=== PATIENT | female | born 1985 | race Caucasian/White ===

== ENCOUNTER → 2016-08-29 09:43 | Emergency (ER) | payer SELFPAY ==
--- NOTE | 2016-08-29 10:14 | ED ---
GI/ HPI - HPI Summary HPI Summary: 31 female presents with complaints of lower pelvic pain/cramps and vaginal bleeding x 3 weeks intermittently, began August 14 and she believes it was the start of her menstrual cycle. Patient states she has never experienced this before. She had an IUD for 10 years that was removed last January. Since then her menstrual cycles have been irregular however she has never experienced bleeding for this period of time. LMP was July 13. States bleeding was very light and would stop for 1-2 days however came back and has been getting heavier. Denies any other discharge other than blood. She states her pain was 8/ 10 this morning and she took an excedrin which relieved her pain. States she is going through 2 super tampons in 5 hours. Experiencing clots, which is concerning her. Denies any reproductive history. Has PMHx significant for MS. She denies urinary symptoms, concern for STDs and is having normal bowel movements. Pain is in lower abdomen/suprapubic and does not radiate. Denies chest pain, dizziness, lightheadedness, fever/chills, nausea and vomiting. Her and her partner have been trying to become for the past 6 months. She has not taken an at home test. Has been twice. Has one child in 2007. Last was 4 years ago and she had an . Has not called to make an appointment with her OBGYN yet. - History of Current Complaint Chief Complaint: EDVaginalBleeding Time Seen by Provider: 08/29/16 10:05 Stated Complaint: PELVIC PAIN Hx Obtained From: Patient Onset/Duration: Started Weeks Ago, Still Present, Worse Since Timing: Constant, Intermittent Severity: Severe Current Severity: Mild Vaginal Bleeding Description: Bright Red, Brownish-Red Number of Pads per Hour: 1 - super tampon per hour Pain Intensity: 4 Location of Pain: Suprapubic Pain Characteristics: Cramping Associated Signs and Symptoms: Positive: Diarrhea. Negative: Back Pain, Dizziness, Nausea, Vomiting, Constipation, Blood w/Stool, Hematuria, Dysuria, Flank Pain, Chills, Chest Pain, UTI Symptoms Additional Signs & Symptoms: Positive: - 4 years ago, - 2, Para - 1, Menses Irregular. Negative: STD Aggravating Factor(s): Movement Alleviating Factor(s): OTC Analgesics - Allergy/Home Medications Allergies/Adverse Reactions: Allergies Allergy/AdvReac Type Severity Reaction Status Date / Time No Known Allergies Allergy Verified 02/21/12 12:55 PMH/Surg Hx/FS Hx/Imm Hx Endocrine/Hematology History: Denies: Hx Diabetes, Hx Thyroid Disease Cardiovascular History: Denies: Hx Hypertension Respiratory History: Denies: Hx Asthma, Hx Chronic Obstructive Pulmonary Disease (COPD) GI History: Denies: Hx Ulcer Neurological History: Reports: Other Neuro Impairments/Disorders - multiple sclerosis - Surgical History Surgery Procedure, Year, and Place: C section 2007 - Immunization History Immunizations Up to Date: Yes Infectious Disease History: Denies: Hx Hepatitis, Hx Human Immunodeficiency Virus (HIV), Traveled Outside the [place] in Last 30 Days - Social History Alcohol Use: None Substance Use Type: Reports: None Smoking Status (MU): Current Every Day Smoker - 1/2 ppd Type: Cigarettes Review of Systems Constitutional: Negative Cardiovascular: Negative Respiratory: Negative Positive: Abdominal Pain - pelvic pain Positive: pain, other - vaginal bleeding All Other Systems Reviewed And Are Negative: Yes Physical Exam Triage Information Reviewed: Yes Vital Signs On Initial Exam: Initial Vitals Temp Pulse Resp BP Pulse Ox 98.3 F 68 17 118/75 100 08/29/16 09:52 08/29/16 09:52 08/29/16 09:52 08/29/16 09:52 08/29/16 09:52 Vital Signs Reviewed: Yes Appearance: Positive: Well-Appearing, No Pain Distress, Well-Nourished Skin: Positive: Warm, Skin Color Reflects Adequate Perfusion, Dry. Negative: Cold, Numb, Cyanosis @, Erythema @ Head/Face: Positive: Normal Head/Face Inspection Eyes: Positive: Normal, Conjunctiva Clear ENT: Positive: Hearing grossly normal Neck: Positive: Supple, Nontender, No Lymphadenopathy Respiratory/Lung Sounds: Positive: Clear to Auscultation, Breath Sounds Present. Negative: Rales, Rhonchi, Stridor, Wheezes Cardiovascular: Positive: Normal, RRR, Pulses are Symmetrical in both Upper and Lower Extremities. Negative: Murmur, Rub Abdomen Description: Positive: No Organomegaly, Soft, Guarding - lower abdomen/ suprapubic, Other: - mildly tender/discomfort on palpation of lower abdomen suprapubic area. Negative: CVA Tenderness (R), CVA Tenderness (L), Distended, Peritoneal Signs, Pulsatile Mass Bowel Sounds: Positive: Present Pelvic Exam: Positive: external exam normal, speculum exam normal - besides blood and cervical os appears open, bimanual exam normal, no cerv. motion tender , no masses, active bleeding, tender adnexa, tender uterus, other - no lesions or masses, other lucio normal exam. Negative: discharge, tender w/ cervical motion Musculoskeletal: Positive: Normal, Strength/ROM Intact Neurological: Positive: Normal, Sensory/Motor Intact, Alert, Oriented to Person Place, Time Psychiatric: Positive: Normal, Affect/Mood Appropriate Diagnostics - Vital Signs Vital Signs Temp Pulse Resp BP Pulse Ox 08/29/16 09:52 98.3 F 68 17 118/75 100 - Laboratory Result Diagrams: 08/29/16 10:40 08/29/16 10:40 Lab Statement: Any lab studies that have been ordered have been reviewed, and results considered in the medical decision making process. - Ultrasound No standard instances Ultrasound Interpretation: Positive (See Comments) - 1. Unremarkable uterus and endometrium. 2. Small bilateral involuting follicular or hemorrhagic ovarian cysts without concern. Ultrasound Interpretation Completed By: Radiologist Re-Evaluation - Re-Evaluation First Eval Re-Evaluation Time: 11:54 Change: Unchanged Comment: patient was updated on her lab and u/s results. 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 CBC, CMP, HCG preg and urinalysis obtained. Transvaginal U/S obtained. Also obtained GC/Chlam and affirm cultures. pending results. Beta quant was positive however u/s was negative beside b/l follicullar/hemorrhagic cysts without concern. Due to patient's HPI, PE findings and lab results will be treated as an early miscarriage. no concern for ectopic at this time. Follow up with OBGYN within the next 3 days for repeat lab work and evaluation. Continue NSAIDs for pain and inflammation. Aware of worsening sign and symptoms to watch out for. - Diagnoses Differential Diagnoses - Female: Candidiasis, Cystitis, Ectopic , Ovarian Torsion, , Pelvic Inflammatory Disease, STD, Threatened , Urinary Tract Infection, Vaginitis, Other - miscarriage Provider Diagnoses: Miscarriage - Physician Notifications Discussed Care Of Patient With: Dr Lozada Discharge - Discharge Plan Condition: Stable Disposition: HOME Patient Education Materials: Miscarriage (ED) Referrals: Marcella Baltazar MD [Primary Care Provider] - James Claudio MD [Medical Doctor] - Additional Instructions: Continue taking NSAIDs such as iburprofen or aleve to help with pain and decreasing inflammation. Use warm heating pads to help soothe lower abdominal cramps/pain. Follow up and have repeat blood work at OBGYN within the next 3 days, as this is very important. If you develop worsening symptoms, symptoms persist or new symptoms develop please return and seek medical attention promptly.
[2016-08-29 11:00] LABS: Hematocrit 40 % (35-47); Mean Corpuscular HGB Conc 33 g/dl (31-36); Mean Corpuscular Hemoglobin 31 pg (27-31); Mean Corpuscular Volume 95 fL (80-97); Mean Platelet Volume 9 um3 (7.4-10.4); Red Blood Count 4.17 10^6/ul (4.0-5.4); Red Cell Distribution Width 14 % (10.5-15); White Blood Count 7.4 10^3/ul (3.5-10.8)
[2016-08-29 11:24] LABS: Urine Bacteria Absent (Absent); Urine Bilirubin Negative (Negative); Urine Glucose Negative (Negative); Urine Nitrite Negative (Negative)
[2016-08-29 11:25] LABS: Albumin 4.2 g/dL (3.2-5.2); BUN/Creatinine Ratio 15.3 (8-20); Calcium 9.3 mg/dL (8.6-10.3); EGFR African American 123.2 (>60); EGFR Non-African American 95.8 (>60); Globulin 3.2 g/dL (2-4); Potassium 3.5 mmol/L (3.5-5.0); Total Bilirubin 0.2 mg/dL (0.2-1.0); Total Protein 7.4 g/dL (6.4-8.9)
--- NOTE | 2016-08-29 11:33 | RAD ---
Indication: 3 weeks vaginal bleeding. Pelvic pain. Comparison: No relevant prior exams available on the [facility] for comparison. Technique: Transvaginal pelvic ultrasound. Report: Unremarkable 7.3 x 4.0 x 4.6 cm anteverted uterus with 7.7 mm endometrium. Negative for free pelvic fluid. 4.0 x 2.8 x 2.5 cm RIGHT ovary is remarkable for multiple small follicles and a 1.3 x 1.5 x 0.9 cm complex cyst without intrinsic vascularity consistent with an involuting follicular or hemorrhagic cyst. 3.3 x 1.8 x 2.6 cm LEFT ovary with documented vascular flow is remarkable for small peripheral follicles and suggestion of a 1.0 cm involuting follicular or hemorrhagic cyst. No suspicious ovarian or extraovarian adnexal region lesions evident. IMPRESSION: 1. Unremarkable uterus and endometrium. 2. Small bilateral involuting follicular or hemorrhagic ovarian cysts without concern.
[2016-08-29 13:19] VITALS: BP 101/62
--- NOTE | 2016-08-30 18:29 | ED ---
Progress - Progress Note Progress Note: Pt's vaginal swab reveals BV - pt was dx'd w/ early miscarriage on this day. Spoke w/ her today - she followed up with OBGYN today and they are rechecking levels. 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 Reports feeling better overall. She is not sure if OBGYN received results of vaginal cx so discussed with her today and will fax to OBGYN. Since she is asx, will refrain from tx but will defer to OBGYN as this may be d/t recent events and tx may not be necessary. Explained she should also f/u w/ OBGYN about these results by the end of the week if they do not contact her. Pt agrees w/ plan and will return to ED if danger s/sx present. Will fax to OBGYN - Yue cannonrk aware. Re-Evaluation - Re-Evaluation First Eval Re-Evaluation Time: 11:54 Change: Unchanged Comment: patient was updated on her lab and u/s results. 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 CBC, CMP, HCG preg and urinalysis obtained. Transvaginal U/S obtained. Also obtained GC/Chlam and affirm cultures. pending results. Beta quant was positive however u/s was negative beside b/l follicullar/hemorrhagic cysts without concern. Due to patient's HPI, PE findings and lab results will be treated as an early miscarriage. no concern for ectopic at this time. Follow up with OBGYN within the next 3 days for repeat lab work and evaluation. Continue NSAIDs for pain and inflammation. Aware of worsening sign and symptoms to watch out for. - Diagnoses Provider Diagnoses: Miscarriage
== END | disposition home or self-care (01) ==
LOC: ED 09:43
DX: O03.9 Complete or unspecified spontaneous abortion without complication (principal); R10.2 Pelvic and perineal pain; N93.9 Abnormal uterine and vaginal bleeding, unspecified
CPT/HCPCS: 36415; 76830; 80053; 81003; 81015; 84702; 85025; 87480; 87491; 87510; 87591; 87661; 99282

== ENCOUNTER 2016-09-15 15:36 | Emergency (ER) | payer BC ==
[2016-09-15 17:20] LABS: Hematocrit 40 % (35-47); Hemoglobin 13.2 g/dl (12.0-16.0); Mean Corpuscular HGB Conc 33 g/dl (31-36); Mean Corpuscular Hemoglobin 32 pg (27-31); Mean Corpuscular Volume 97 fL (80-97); Mean Platelet Volume 8 um3 (7.4-10.4); Red Blood Count 4.08 10^6/ul (4.0-5.4); Red Cell Distribution Width 14 % (10.5-15); White Blood Count 6.9 10^3/ul (3.5-10.8)
[2016-09-15 17:41] LABS: Albumin 4.4 g/dL (3.2-5.2); BUN/Creatinine Ratio 8.3 (8-20); Calcium 9.4 mg/dL (8.6-10.3); EGFR African American 123.2 (>60); EGFR Non-African American 95.8 (>60); Globulin 3.3 g/dL (2-4); Potassium 3.4 mmol/L (3.5-5.0); Total Bilirubin 0.4 mg/dL (0.2-1.0); Total Protein 7.7 g/dL (6.4-8.9)
--- NOTE | 2016-09-15 20:17 | RAD ---
Indication: . Real-time sonography of the was performed. The study was performed utilizing endovaginal technique. The uterus measures 6.8 x 4.5 x 4.3 cm. There is no evidence of an intrauterine gestational sac noted. The right ovary measures 4.7 x 2.8 x 2.8 cm. Left ovary measures 3.2 x 1.6 x 3.0 cm. There is a small amount of free fluid in the cul-de-sac. IMPRESSION: No evidence of intrauterine . No adnexal masses are noted although a small amount of free fluid is noted in the cul-de-sac.
--- NOTE | 2016-09-15 20:29 | ED ---
GI/ HPI - HPI Summary HPI Summary: 31F LMP 6/3 presents with cramping abdominal pain for 2 days. She states that she had vaginal bleeding starting last month that came here for evaluation and had elevated hcg so she has been following up with her obgyn to follow up her levels. She states that the bleeding resolved and that she was pain free until a day ago. She states it is intense cramp like pain. She denies any dysuria, hematuria, flank pain, nausea, vomiting, diarrhea or constipation. She denies any vaginal discharge or bleeding. She has never had this pain before. - History of Current Complaint Chief Complaint: EDOBProblems Time Seen by Provider: 09/15/16 18:47 Stated Complaint: ABD PAIN Pain Intensity: 10 - Allergy/Home Medications Allergies/Adverse Reactions: Allergies Allergy/AdvReac Type Severity Reaction Status Date / Time No Known Allergies Allergy Verified 02/21/12 12:55 PMH/Surg Hx/FS Hx/Imm Hx Endocrine/Hematology History: Denies: Hx Diabetes, Hx Thyroid Disease Cardiovascular History: Denies: Hx Hypertension Respiratory History: Denies: Hx Asthma, Hx Chronic Obstructive Pulmonary Disease (COPD) GI History: Denies: Hx Ulcer Neurological History: Reports: Other Neuro Impairments/Disorders - multiple sclerosis - Surgical History Surgery Procedure, Year, and Place: C section 2007 Infectious Disease History: Denies: Hx Hepatitis, Hx Human Immunodeficiency Virus (HIV), Traveled Outside the US in Last 30 Days - Family History Known Family History: Positive: Hypertension - Social History Alcohol Use: None Substance Use Type: Reports: None Smoking Status (MU): Current Every Day Smoker Type: Cigarettes Review of Systems Negative: Fever Negative: Chest Pain Negative: Shortness Of Breath Positive: Abdominal Pain. Negative: Vomiting, Diarrhea, Nausea Negative: dysuria, frequency, flank pain All Other Systems Reviewed And Are Negative: Yes Physical Exam Triage Information Reviewed: Yes Vital Signs On Initial Exam: Initial Vitals Temp Pulse Resp BP Pulse Ox 99.3 F 66 15 106/59 100 09/15/16 16:38 09/15/16 16:38 09/15/16 16:38 09/15/16 16:38 09/15/16 16:38 Vital Signs Reviewed: Yes Appearance: Positive: Well-Appearing Skin: Positive: Warm, Dry Head/Face: Positive: Normal Head/Face Inspection Eyes: Positive: Normal, Conjunctiva Clear Respiratory/Lung Sounds: Positive: Clear to Auscultation, Breath Sounds Present Cardiovascular: Positive: Normal, RRR Abdomen Description: Positive: Soft, Other: - mild tenderness suprapubic, no rebound Bowel Sounds: Positive: Present - Gurdeep Coma Scale Coma Scale Total: 15 Diagnostics - Vital Signs Vital Signs Temp Pulse Resp BP Pulse Ox 09/15/16 16:40 99.3 F 66 15 106/59 100 09/15/16 16:38 99.3 F 66 15 106/59 100 - Laboratory Lab Results: Lab Results 09/15/16 09/15/16 Range/Units 17:02 17:02 WBC 6.9 (3.5-10.8) 10^3/ul RBC 4.08 (4.0-5.4) 10^6/ul Hgb 13.2 (12.0-16.0) g/dl Hct 40 (35-47) % MCV 97 (80-97) fL MCH 32 H (27-31) pg MCHC 33 (31-36) g/dl RDW 14 (10.5-15) % Plt Count 205 (150-450) 10^3/ul MPV 8 (7.4-10.4) um3 Neut % (Auto) 54.6 (38-83) % Lymph % (Auto) 35.7 (25-47) % Josephine % (Auto) 6.9 (1-9) % Eos % (Auto) 1.9 (0-6) % Baso % (Auto) 0.9 (0-2) % Absolute Neuts (auto) 3.8 (1.5-7.7) 10^3/ul Absolute Lymphs (auto) 2.5 (1.0-4.8) 10^3/ul Absolute Monos (auto) 0.5 (0-0.8) 10^3/ul Absolute Eos (auto) 0.1 (0-0.6) 10^3/ul Absolute Basos (auto) 0.1 (0-0.2) 10^3/ul Absolute Nucleated RBC 0 10^3/ul Nucleated RBC % 0 Sodium 137 (133-145) mmol/L Potassium 3.4 L (3.5-5.0) mmol/L Chloride 104 (101-111) mmol/L Carbon Dioxide 28 (22-32) mmol/L Anion Gap 5 (2-11) mmol/L BUN 6 (6-24) mg/dL Creatinine 0.72 (0.51-0.95) mg/dL Est GFR ( Amer) 123.2 (>60) Est GFR (Non-Af Amer) 95.8 (>60) BUN/Creatinine Ratio 8.3 (8-20) Glucose 92 (70-100) mg/dL Calcium 9.4 (8.6-10.3) mg/dL Total Bilirubin 0.40 (0.2-1.0) mg/dL AST 22 (13-39) U/L ALT 12 (7-52) U/L Alkaline Phosphatase 50 (34-104) U/L Total Protein 7.7 (6.4-8.9) g/dL Albumin 4.4 (3.2-5.2) g/dL Globulin 3.3 (2-4) g/dL Albumin/Globulin Ratio 1.3 (1-3) Beta HCG, Quant 392.36 mIU/mL Result Diagrams: 09/15/16 17:02 09/15/16 17:02 Lab Statement: Any lab studies that have been ordered have been reviewed, and results considered in the medical decision making process. - Ultrasound No standard instances Ultrasound Interpretation: No Acute Changes - IMPRESSION: No evidence of intrauterine . No adnexal masses are noted although a small amount of free fluid is noted in the cul-de-sac. Ultrasound Interpretation Completed By: Hong OLIVER Course/Dx - Course Course Of Treatment: 31F LMP 6/3 presents with cramping abdominal pain for 2 days. She states that she had vaginal bleeding starting last month that came here for evaluation and had elevated hcg so she has been following up with her obgyn to follow up her levels. She states that the bleeding resolved and that she was pain free until a day ago. She states it is intense cramp like pain. hcg only 300 and nothing seen on u/s. discussed with dr pagan and if was pregant hcg should have increased by a large amount over the past three weeks than 200 so unlikely is . no evidence of ectopic or molar . wbc normal. unable to give use a urine. told to follow up [facility] obgyn. may benefit from d&C?. patient understands and agrees with plan - Diagnoses Differential Diagnoses - Female: Ectopic , Ovarian Cyst, Provider Diagnoses: Abdominal pain, Elevated serum hCG Discharge - Discharge Plan Condition: Good Disposition: HOME Referrals: Marcella Baltazar MD [Primary Care Provider] - Additional Instructions: Follow up with obgyn Take Tylenol or ibuprofen for pain every 6 hours Return to ED if develop any new or worsening symptoms
[2016-09-15 20:43] VITALS: BP 99/45
== END 2016-09-15 20:40 | disposition home or self-care (01) ==
LOC: ED 15:36
DX: R10.9 Unspecified abdominal pain (principal); F17.210 Nicotine dependence, cigarettes, uncomplicated; R79.89 Other specified abnormal findings of blood chemistry
CPT/HCPCS: 36415; 76817; 80053; 84702; 85025; 99282

== ENCOUNTER → 2016-09-19 13:59 | Emergency (ER) | payer BC ==
[2016-09-19 16:33] VITALS: BP 0/0
== END | disposition left against medical advice (07) ==
LOC: ED 13:59
DX: R10.9 Unspecified abdominal pain (principal); Z53.20 Procedure and treatment not carried out because of patient's decision for unspecified reasons
CPT/HCPCS: 99281

== ENCOUNTER 2016-09-22 20:54 | Emergency (ER) | payer BC ==
[2016-09-22 21:10] VITALS: BP 114/53
== END 2016-09-22 21:48 | disposition left against medical advice (07) ==
LOC: ED 20:54
DX: R10.84 Generalized abdominal pain (principal); Z53.21 Procedure and treatment not carried out due to patient leaving prior to being seen by health care provider

== ENCOUNTER 2017-12-13 05:50 | Inpatient (IN) | payer BC ==
[2017-12-12 13:51] LABS: ABS Basophils 0.1 10^3/ul (0-0.2); ABS Eosinophils 0.1 10^3/ul (0-0.6); ABS Lymphocytes 2.1 10^3/ul (1.0-4.8); ABS Monocytes 0.7 10^3/ul (0-0.8); ABS Neutrophils 7.7 10^3/ul (1.5-7.7); ABS Nucleated RBC 0 10^3/ul; Eosinophil % 1.2 % (0-6); Hematocrit 35 % (35-47); Hemoglobin 11.7 g/dl (12.0-16.0); Lymphocyte % 19.7 % (25-47); Mean Corpuscular HGB Conc 34 g/dl (31-36); Mean Corpuscular Hemoglobin 31 pg (27-31); Mean Corpuscular Volume 93 fL (80-97); Mean Platelet Volume 8.9 um3 (7.4-10.4); Nucleated Red Blood Cells % 0; Platelet Count 231 10^3/ul (150-450); Red Blood Count 3.76 10^6/ul (4.00-5.40); Red Cell Distribution Width 13 % (10.5-15); White Blood Count 10.7 10^3/ul (3.5-10.8)
[2017-12-13] MEDS ORDERED: ceFOXitin 2 GM IVPREMIX* 2 GM/50 ML BAG ONE (06:48)
[2017-12-13] MEDS ORDERED: Sodium Citrate/Citric Acid* 15 ML UDC ONE (07:23)
[2017-12-13] MEDS ORDERED: Morphine PF AMP (0.5MG/ML)* 5 MG/10 ML AMP ONE (07:36)
[2017-12-13] MEDS ORDERED: Chloroprocaine 3%* 20 ML VIAL ONE ×2 (07:37→07:39)
[2017-12-13] MEDS ORDERED: EPHEDrine (Pressors)* 50 MG/ML VIAL ONE (08:22)
[2017-12-13] MEDS ORDERED: Phenylephrine IV* 40 MCG/ML 10 ML SYRINGE ONE (08:22)
[2017-12-13] MEDS ORDERED: Ondansetron INJ* 2 MG/ML VIAL ONE (08:22)
[2017-12-13] MEDS ORDERED: OXYTOCIN* 10 UNITS/ML 1 ML VIAL ONE ×3 (08:22→09:37)
[2017-12-13] MEDS ORDERED: Acetaminophen TAB* 325 MG PO PRN (09:04)
[2017-12-13] MEDS ORDERED: Zolpidem TAB* 5 MG PO PRN (09:04)
[2017-12-13] MEDS ORDERED: Witch Hazel PAD* JAR TOPICAL PRN (09:04)
[2017-12-13] MEDS ORDERED: Glycerin ADULT SUPP PR PRN (09:04)
[2017-12-13] MEDS ORDERED: oxyCODONE/Acetamin 5/325 MG* TAB PO PRN (09:04)
[2017-12-13] MEDS ORDERED: Dibucaine 1% 28.35 GM TUBE PR PRN (09:04)
[2017-12-13] MEDS ORDERED: Naloxone* 0.4 MG/ML 1 ML VIAL IV PRN ×2 (09:33→09:35)
[2017-12-13] MEDS ORDERED: fentaNYL* 50 MCG/ML 2 ML VIAL (100 MCG VIAL) IV PRN (09:33)
[2017-12-13] MEDS ORDERED: Nalbuphine* 10 MG/ML 1 ML VIAL IV PRN (09:35)
[2017-12-13] MEDS ORDERED: Naloxone* 2 MG in NS 0.9% 250 ML* 250 ML IV PRN (09:35)
[2017-12-13] MEDS ORDERED: Ondansetron INJ* 2 MG/ML VIAL IV PRN (09:35)
[2017-12-13] MEDS ORDERED: diPHENhydraMINE IV* 50 MG/ML 1 ml VIAL (BENADRYL) IV PRN (09:35)
[2017-12-13] MEDS ORDERED: Oxytocin in LR* 20 UNITS/1,000 ML BAG IVPB SCH (10:00)
[2017-12-13] MEDS: Ibuprofen TAB* 600 MG PO PRN ×2 (10:56→19:27)
[2017-12-13] MEDS: Simethicone TAB* 80 MG TAB.CHEW PO SCH ×2 (12:39→18:25)
[2017-12-13] MEDS: Docusate CAP* 100 MG PO SCH (19:26)
--- NOTE | 2017-12-13 22:36 | OP ---
DATE OF OPERATION: 12/13/17 - ROOM #102 DATE OF : 89 SURGEON: Job Martin MD HOE WORKER: Jeri Carter CNM ANESTHESIA: Epidural. PRE-OP DIAGNOSIS: Previous section. POST-OP DIAGNOSIS: Previous section. OPERATIVE PROCEDURE: Low transverse section. ESTIMATED BLOOD LOSS: 600 cc. FINDINGS: Include a viable female, Apgars 9 and 9. The weight was 6 pounds even. Normal-appearing uterus, fallopian tubes, and ovaries. DESCRIPTION OF PROCEDURE: The patient was identified, procedure identified as a low transverse section. The patient was taken to the operating room, prepped and draped in the usual fashion in the left lateral recumbent position under epidural anesthesia. A Pfannenstiel incision was made through the old incision, carried down through the fat, fascia, and peritoneum. A transverse incision was made in the lower uterine segment and extended laterally using blunt dissection. The above infant was delivered through the incision with ease. The cord was doubly clamped and cut, and the infant was handed to the awaiting seafood clerk. Cord blood was obtained, placenta delivered spontaneously. The uterus was wiped out with a wet lap sponge. The uterine incision was then closed using 0 Polysorb in a running fashion. A second layer was used to imbricate the first layer. Good hemostasis was verified in the subperitoneal layers. After the uterus was placed back in the abdominal cavity , the peritoneum was closed using 3-0 Polysorb in a running fashion. Good hemostasis was achieved in the subrectus layers. The fascia was closed using 0 Polysorb in a running fashion. Good hemostasis was achieved in the subcu. A 3- 0 Polysorb was placed in the subcutaneous fat to bring the space together. The skin was then closed with 4-0 Monocryl in a subcuticular fashion. All sponge and instrument counts were correct and the patient returned to the recovery room in stable condition. [id number]/[facility] #: [id number] [facility]
[2017-12-14] MEDS: Ibuprofen TAB* 600 MG PO PRN ×4 (02:20→21:31)
[2017-12-14] MEDS: Simethicone TAB* 80 MG TAB.CHEW PO SCH ×5 (02:20→21:31)
[2017-12-14] MEDS: oxyCODONE/Acetamin 5/325 MG* TAB PO PRN ×2 (05:47→21:31)
[2017-12-14 06:43] LABS: ABS Basophils 0 10^3/ul (0-0.2); ABS Eosinophils 0.1 10^3/ul (0-0.6); ABS Lymphocytes 1.7 10^3/ul (1.0-4.8); ABS Monocytes 0.6 10^3/ul (0-0.8); ABS Neutrophils 7.8 10^3/ul (1.5-7.7); ABS Nucleated RBC 0 10^3/ul; Eosinophil % 1.1 % (0-6); Hematocrit 31 % (35-47); Hemoglobin 10.5 g/dl (12.0-16.0); Lymphocyte % 16.2 % (25-47); Mean Corpuscular HGB Conc 34 g/dl (31-36); Mean Corpuscular Hemoglobin 32 pg (27-31); Mean Corpuscular Volume 93 fL (80-97); Mean Platelet Volume 8.6 um3 (7.4-10.4); Nucleated Red Blood Cells % 0; Platelet Count 188 10^3/ul (150-450); Red Blood Count 3.33 10^6/ul (4.00-5.40); Red Cell Distribution Width 14 % (10.5-15); White Blood Count 10.2 10^3/ul (3.5-10.8)
[2017-12-14] MEDS ORDERED: Ferrous Gluconate TAB* 324 MG TAB PO SCH (09:00)
[2017-12-14] MEDS: Docusate CAP* 100 MG PO SCH ×4 (09:03→21:31)
[2017-12-15 08:00] VITALS: BP 101/57
[2017-12-15] MEDS: oxyCODONE/Acetamin 5/325 MG* TAB PO PRN (08:05)
[2017-12-15] MEDS: Docusate CAP* 100 MG PO SCH (08:49)
[2017-12-15] MEDS: Simethicone TAB* 80 MG TAB.CHEW PO SCH (08:49)
--- NOTE | 2017-12-15 14:27 | PN ---
Progress Note - Progress Note Date of Service: 12/15/17 Note: When I saw the patient in her room on Monday, December 13, she had complete gross recovery of motor and sensory function, her post-operative pain was controlled, and had no back pain or other anesthesia-related complaints. I was at [facility] yesterday, and patient was discharged today before I had a chance to see her again. I reviewed the medical record and can find no indication of anesthesia-related complaints or problems.
== END 2017-12-15 11:30 | disposition home or self-care (01) | DRG 540 ==
LOC: MCHOB 05:50
PROVIDERS: ADMIT Obstetrics & Gynecology; ATTEND Obstetrics & Gynecology
PROC: 4A1HXCZ Monitoring of Products of Conception, Cardiac Rate, External Approach (ICD-10-PCS; 2017-12-13)
PROC: 10D00Z1 Extraction of Products of Conception, Low, Open Approach (ICD-10-PCS; principal; 2017-12-13 07:45)
DX: O34.211 Maternal care for low transverse scar from previous cesarean delivery (principal); O99.354 Diseases of the nervous system complicating childbirth; O99.334 Smoking (tobacco) complicating childbirth; F17.200 Nicotine dependence, unspecified, uncomplicated; G35 Multiple sclerosis; O69.1XX0 Labor and delivery complicated by cord around neck, with compression, not applicable or unspecified; Z3A.39 39 weeks gestation of pregnancy; Z37.0 Single live birth
CPT/HCPCS: 36415; 85025; 86850; 86900; 86901; A9270-GY; J0694; J2400; J2405; J2590

== ENCOUNTER 2018-03-04 15:48 | Emergency (ER) | payer BC ==
[2018-03-04] MEDS ORDERED: Fluorescein Sodium TOPICAL* 1 MG TEST STRIP OPHTHALMIC ONE (15:57)
[2018-03-04] MEDS ORDERED: Tetracaine 0.5% OPTH.SOL 4 ML* 1 DROP BTL BOTH EYES ONE (15:57)
--- NOTE | 2018-03-04 15:58 | UC ---
Eye Complaint HPI - HPI Summary HPI Summary: 33 yo female presents with right eye redness and drainage since last night. She tells me that last night she had some itching to her right eye and thought something might have gotten into it - so she took her contacts out and flushed her eye with water and felt a little better. Today her eye is red and had yellow drainage this morning. She is wearing her glasses now. Denies fever, chills, sinus symptoms, change in vision, injury to eye, or FB. - History of Current Complaint Chief Complaint: UCEye Stated Complaint: eye irritation Time Seen by Provider: 03/04/18 15:57 Hx Obtained From: Patient Hx Last Menstrual Period: 3 wks ago Onset/Duration: Sudden Onset Severity Currently: None Pain Intensity: 0 - Allergies/Home Medications Allergies/Adverse Reactions: Allergies Allergy/AdvReac Type Severity Reaction Status Date / Time No Known Allergies Allergy Verified 03/04/18 15:55 PMH/Surg Hx/FS Hx/Imm Hx - Additional Past Medical History Additional PMH: None - Surgical History Surgical History: Yes Surgery Procedure, Year, and Place: C section - Family History Known Family History: Positive: Hypertension - Social History Occupation: Employed Full-time Lives: With Family Alcohol Use: None Substance Use Type: None Smoking Status (MU): Former Smoker Type: Cigarettes Have You Smoked in the Last Year: Yes When Did the Patient Quit Smoking/Using Tobacco: 06/09/17 - Immunization History Most Recent Influenza Vaccination: denies Most Recent Pneumonia Vaccination: n/a Review of Systems All Other Systems Reviewed And Are Negative: Yes Constitutional: Positive: Negative Skin: Positive: Negative Eyes: Positive: Drainage, Eye Redness ENT: Positive: Negative Respiratory: Positive: Negative Cardiovascular: Positive: Negative Neurovascular: Positive: Negative Neurological: Positive: Negative Psychological: Positive: Negative Physical Exam - Summary Physical Exam Summary: GENERAL: WDWN. No pain distress. SKIN: No rashes, sores, lesions, or open wounds. HEENT: Head: AT/NC Eyes: EOM intact. PERRLA. RIGHT EYE: Mild scleral injection. Conjunctiva with mild erythema and inflammation. Mild clear discharge. Fluorescein exam: No areas of increased uptake. No abrasion or shirin sign. LEFT EYE: Conjunctiva clear without inflammation or discharge. No FBs appreciated Nose: NTTP maxillary and frontal sinus. NECK: Supple. Nontender. No lymphadenopathy. CHEST: No accessory muscle use. Breathing comfortably and in no distress. CV: Pulses intact. Cap refill <2seconds NEURO: Alert. PSYCH: Age appropriate behavior. Triage Information Reviewed: Yes Vital Signs: Initial Vital Signs Temp 98.0 F 03/04/18 15:52 Pulse 56 03/04/18 15:52 Resp 16 03/04/18 15:52 BP 00/00 03/04/18 15:52 Pulse Ox 100 03/04/18 15:52 Vital Signs Reviewed: Yes Eye Complaint Course/Dx - Course Course Of Treatment: Fluorescein exam unremarkable. Suspect conjunctivitis. Given her contact usage will rx for ofloxacin and have her refrain from wearing her contacts until resolved. Repeat BP manual 104/66 and pt states this is her usual BP range - suspect intial BP (elevated) was in error. - Differential Dx/Diagnosis Provider Diagnosis: Conjunctivitis, right eye Discharge - Sign-Out/Discharge Documenting (check all that apply): Patient Departure All imaging exams completed and their final reports reviewed: No Studies - Discharge Plan Condition: Stable Disposition: HOME Prescriptions: Ofloxacin 0.3% (Eye Drop) [Ocuflox OPTH 0.3% (Eye Drop)] 1 drop RIGHT EYE QID # 1 btl Patient Education Materials: Conjunctivitis (ED) Referrals: No Primary Care Phys,NOPCP [Primary Care Provider] - Additional Instructions: If you develop a fever, shortness of breath, chest pain, new or worsening symptoms - please call your PCP or go to the ED. Your blood pressure was high at todays visit. Please see your primary provider within 4 weeks for recheck and re-evaluation. - Billing Disposition and Condition Condition: STABLE Disposition: Home
[2018-03-04 16:04] VITALS: BP 188/93
== END 2018-03-04 16:20 | disposition home or self-care (01) ==
LOC: UCEAST 15:48
DX: H10.9 Unspecified conjunctivitis (principal); Z87.891 Personal history of nicotine dependence
CPT/HCPCS: 99212; A9270-GY; G0463

== ENCOUNTER 2021-12-02 16:00 | Inpatient (IN) ==
[2021-12-02] MEDS ORDERED: Lactated Ringers 1000 ml BAG 1,000 ML IV ONE (17:57)
[2021-12-02] MEDS ORDERED: Buffered Lidocaine 1% SYRIN 1 ml INTRADERM ONE (17:57)
[2021-12-02] MEDS ORDERED: Sodium Citrate/Citric Acid LIQ 15 ML UDC PO ONE (17:57)
[2021-12-02] MEDS ORDERED: ceFOXitin 2 GM IVPREMIX 2 GM/50 ML BAG IVPB ONE (17:57)
[2021-12-02] MEDS ORDERED: Lactated Ringers 1000 ml BAG 1,000 ML IV SCH ×2 (18:00→23:00)
[2021-12-02 18:54] LABS: ABS Eosinophils 0.1 10^3/ul (0-0.6); ABS Lymphocytes 1.8 10^3/ul (1.0-4.8); ABS Monocytes 0.6 10^3/ul (0-0.8); ABS Neutrophils 7.8 10^3/ul (1.5-7.7); Eosinophil % 0.6 %; Hematocrit 38 % (35-47); Hemoglobin 12.4 g/dL (12.0-16.0); Lymphocyte % 17.7 %; Mean Corpuscular HGB Conc 33 g/dL (31-36); Mean Corpuscular Hemoglobin 31 pg (27-31); Mean Corpuscular Volume 95 fL (80-97); Mean Platelet Volume 8.5 fL (7.4-10.4); Nucleated Red Blood Cells % 0.1; Platelet Count 209 10^3/uL (150-450); Red Cell Distribution Width 16 % (10-15); White Blood Count 10.3 10^3/uL (3.5-10.8)
[2021-12-02] MEDS ORDERED: Lidocaine 1.5% EPI 1:200,000 30 ML SDV ONE (19:21)
[2021-12-02] MEDS ORDERED: OBEPIDURAL (200 ML) 0 ML EPIDURAL ONE (19:21)
[2021-12-02 19:22] LABS: Urine Benzodiazepine Screen Presumptive Positive (None Detect); Urine Cannabinoids Screen None Detected (None Detect); Urine Opiates Screen None Detected (None Detect)
[2021-12-02] MEDS ORDERED: Lidocaine 2% w/ EPI 1:200,000 MPF 20 ML SDV VIAL ONE ×2 (19:22→19:44)
[2021-12-02] MEDS ORDERED: Lidocaine 1% VIAL 10 MG/ML VIAL ONE (19:46)
[2021-12-02] MEDS ORDERED: Oxytocin 10 UNITS/ML 1 ML VIAL ONE (20:38)
[2021-12-02] MEDS ORDERED: Morphine PF AMP (0.5MG/ML) 5 MG/10 ML AMP ONE (20:38)
[2021-12-02] MEDS ORDERED: Phenylephrine 40 mcg/mL 10mL (400mcg) SYRINGE ONE (20:42)
[2021-12-02] MEDS ORDERED: fentaNYL 100 mcg/2 ml 50 MCG/ML VIAL ONE ×2 (20:43→22:05)
[2021-12-02 20:58] LABS: Urine Appearance Cloudy; Urine Bilirubin Negative (Negative); Urine Blood 1+ (Negative); Urine Color Yellow; Urine Glucose Negative (Negative); Urine Ketones 2+ (Negative); Urine Nitrite Negative (Negative); Urine Protein Negative (Negative); Urine Specific Gravity 1.014 (1.002-1.030); Urine Urobilinogen Negative (Negative)
[2021-12-02 21:17] LABS: Urine Bacteria Absent (Absent); Urine Red Blood Cell Absent (Absent); Urine White Blood Cell Absent (Absent)
[2021-12-02] MEDS ORDERED: Ondansetron 4 mg VIAL 2 MG/ML 2 ml VIAL ONE (22:00)
[2021-12-02] MEDS ORDERED: Scopolamine 1 mg/72hr PATCH ONE (22:05)
[2021-12-02] MEDS ORDERED: Acetaminophen IV 1 GM/100ML 1,000 MG/100 ML BAG IV ONE (22:16)
[2021-12-02] MEDS ORDERED: Dibucaine 1% OINT 28.35 GM TUBE PR PRN (22:54)
[2021-12-02] MEDS ORDERED: Glycerin ADULT 2.4 gm SUPP PR PRN (22:54)
[2021-12-02] MEDS ORDERED: Witch Hazel PAD JAR TOPICAL PRN (22:54)
[2021-12-02] MEDS ORDERED: fentaNYL 100 mcg/2 ml 50 MCG/ML VIAL IV PRN (22:56)
[2021-12-02] MEDS ORDERED: Naloxone 0.4 mg VIAL 0.4 mg/ml 1 ml VIAL IV PRN (22:56)
[2021-12-02] MEDS ORDERED: Ondansetron 4 mg VIAL 2 MG/ML 2 ml VIAL IV PRN ×2 (22:56→22:57)
[2021-12-02] MEDS ORDERED: Acetaminophen IV 1 GM/100ML 1,000 MG/100 ML BAG IV PRN (22:57)
[2021-12-02] MEDS ORDERED: Naloxone 0.4 mg VIAL 0.4 mg/ml 1 ml VIAL IV PUSH PRN (22:57)
[2021-12-02] MEDS ORDERED: Metoclopramide 5 MG/ML VIAL (10 mg) IV PRN (22:57)
[2021-12-02] MEDS ORDERED: Oxytocin in LR 20,000 MILLI.UNIT/1,000 ML BAG IV SCH (23:00)
[2021-12-03 06:54] LABS: ABS Eosinophils 0.1 10^3/ul (0-0.6); ABS Lymphocytes 1.9 10^3/ul (1.0-4.8); ABS Monocytes 0.5 10^3/ul (0-0.8); ABS Neutrophils 7.3 10^3/ul (1.5-7.7); Eosinophil % 0.8 %; Hematocrit 31 % (35-47); Hemoglobin 10.6 g/dL (12.0-16.0); Lymphocyte % 19.1 %; Mean Corpuscular HGB Conc 34 g/dL (31-36); Mean Corpuscular Hemoglobin 32 pg (27-31); Mean Corpuscular Volume 94 fL (80-97); Mean Platelet Volume 8.2 fL (7.4-10.4); Platelet Count 169 10^3/uL (150-450); Red Cell Distribution Width 16 % (10-15); White Blood Count 9.8 10^3/uL (3.5-10.8)
[2021-12-03] MEDS ORDERED: guaiFENesin 100 mg/5 ml LIQ unit dose cup PO PRN (14:39)
[2021-12-03 22:07] VITALS: BP 92/57
== END 2021-12-04 12:22 | disposition home or self-care (01) | DRG 784 ==
LOC: MCHOBOUT 16:00 → MCHOB 17:25
PROVIDERS: ADMIT Obstetrics & Gynecology; ATTEND Obstetrics & Gynecology